=== PATIENT | male | born 1970 | race Caucasian/White ===

== ENCOUNTER 2019-04-02 15:42 | Inpatient (IN) | payer MEDICAID ==
[~2019-04-02] VITALS: Ht 170.2 cm; Wt 75.1 kg
[2019-04-02 15:48] VITALS: Ht 170.2 cm; Wt 75.1 kg
[2019-04-02 16:30] LABS: CALCIUM 9.2 mg/dL (8.5-10.1); CARBON DIOXIDE 25.1 mmol/L (21-32); CHLORIDE SERUM 104 mmol/L (98-107); CREATININE SERUM 0.9 mg/dL (0.7-1.3); GFR1 > 60 mL/min; GLUCOSE SERUM 98 mg/dL (74-106); POTASSIUM SERUM 3.6 mmol/L (3.5-5.1); SODIUM SERUM 141 mmol/L (136-145)
[2019-04-02 16:35] LABS: AMPHETAMINE QUAL UR POSITIVE (See below)
[2019-04-02 16:42] LABS: ALBUMIN 4.2 g/dL (3.4-5.0); ALKALINE PHOSPHATASE 80 U/L (46-116); ALT/SGPT 35 U/L (16-63); AST/SGOT 25 U/L (15-37); BILIRUBIN DIRECT 0.28 mg/dL (0.0-0.2); BILIRUBIN TOTAL 1.3 mg/dL (0.20-1.00); LIPASE 92 IU/L (73-393); TOTAL PROTEIN, SERUM 7.4 g/dL (6.4-8.2)
[2019-04-02 17:03] LABS: BASOPHIL % 1.1 % (0-2); PLATELET COUNT 191 x10^3mcL (130-400); RED CELL DISTRIBUTION WIDTH 12.9 % (11.5-14.5)
[2019-04-03 14:07] VITALS: BP 106/63
[2019-04-03 18:10] VITALS: BP 116/77
[2019-04-03 20:35] VITALS: BP 104/60
[2019-04-04 05:15] VITALS: BP 79/41; BP 95/51
[2019-04-04 06:08] LABS: BASOPHIL % 0.5 % (0-2); PLATELET COUNT 165 x10^3mcL (130-400); RED CELL DISTRIBUTION WIDTH 13.3 % (11.5-14.5)
[2019-04-04 06:23] LABS: CALCIUM 8.5 mg/dL (8.5-10.1); CHLORIDE SERUM 107 mmol/L (98-107); GFR1 > 60 mL/min; GLUCOSE SERUM 99 mg/dL (74-106); POTASSIUM SERUM 3.4 mmol/L (3.5-5.1); SODIUM SERUM 146 mmol/L (136-145)
[2019-04-04 09:04] VITALS: BP 108/62
[2019-04-04 16:13] VITALS: BP 90/61
[2019-04-04 19:39] VITALS: BP 96/56
[2019-04-05 05:09] VITALS: BP 98/58
[2019-04-05 06:31] LABS: CALCIUM 8.3 mg/dL (8.5-10.1); CARBON DIOXIDE 29.9 mmol/L (21-32); CHLORIDE SERUM 106 mmol/L (98-107); CREATININE SERUM 0.8 mg/dL (0.7-1.3); GFR1 > 60 mL/min; GLUCOSE SERUM 88 mg/dL (74-106); POTASSIUM SERUM 3.9 mmol/L (3.5-5.1); SODIUM SERUM 141 mmol/L (136-145)
[2019-04-05 06:43] LABS: BASOPHIL % 0.6 % (0-2); PLATELET COUNT 142 x10^3mcL (130-400); RED CELL DISTRIBUTION WIDTH 13.4 % (11.5-14.5)
[2019-04-05 09:41] VITALS: BP 104/70
[2019-04-05 18:02] VITALS: BP 116/60
[2019-04-05 19:45] VITALS: BP 97/64
[2019-04-06 07:05] VITALS: BP 112/72
[2019-04-06 08:12] VITALS: BP 107/70
[2019-04-06] MEDS ORDERED: ABILIFY5 M1 PO (09:21)
[2019-04-06] MEDS ORDERED: LEXAPRO10 MG PO (09:21)
[2019-04-06 13:00] VITALS: BP 107/70
[2019-04-06 20:06] VITALS: BP 106/60
[2019-04-07 08:54] VITALS: BP 102/56
== END 2019-04-07 17:45 | DRG 754 ==
LOC: ED 15:42 → MU 04-03 12:54
PROVIDERS: Student in an Organized Health Care Education/Training Program; ADMIT Internal Medicine
DX: F32.9 Major depressive disorder, single episode, unspecified (principal); M62.82 Rhabdomyolysis; R45.851 Suicidal ideations; F15.10 Other stimulant abuse, uncomplicated; F10.10 Alcohol abuse, uncomplicated; R44.0 Auditory hallucinations; Y90.9 Presence of alcohol in blood, level not specified; Z59.0 Homelessness; Z91.5 Personal history of self-harm
CPT/HCPCS: 90658; G0378; G0480; J7042; Q0092